=== PATIENT | male | born 1950 | race Hispanic/Latino ===

== ENCOUNTER 2018-04-07 08:42 | Observation (INO) | payer MEDICARE ==
[~2018-04-07] VITALS: Ht 177.8 cm; Wt 73.5 kg
[2018-04-07 09:17] LABS: BASOPHILS % (AUTO) 0.6 % (0.0-5.0); EOSINOPHILS % (AUTO) 7.3 % (0.0-8.0); HEMATOCRIT 43.1 % (42-54); MEAN CORPUSCULAR HEMOGLOBIN 31.6 pg (27.0-33.0); MEAN CORPUSCULAR HGB CONC 33.4 g/dL (32.0-36.0); MEAN CORPUSCULAR VOLUME 94.6 fL (79-99); MONOCYTES % (AUTO) 8.2 % (3.0-13.0); NEUTROPHILS % (AUTO) 63.9 % (40.0-77.0); PLATELET COUNT (AUTO) 160 K/uL (130-400); RED BLOOD CELL COUNT(AUTO) 4.56 MIL/uL (4.50-6.20); RED CELL DISTRIBUTION WIDTH 12.6 % (11.0-15.5); WHITE BLOOD COUNT (AUTO) 6.7 K/uL (4.8-10.8)
[2018-04-07 09:28] LABS: CREATININE 0.9 mg/dL (0.5-1.5); POTASSIUM 3.7 mmol/L (3.5-5.1)
[2018-04-07 09:31] LABS: ALBUMIN 3.9 g/dL (3.5-5.0); BILIRUBIN,TOTAL 0.7 mg/dL (0.2-1.0); TOTAL PROTEIN, SERUM 6.9 g/dL (6.0-8.3)
[2018-04-07 09:39] LABS: B-TYPE NATRIURETIC PEPTIDE 356 pg/mL (0-100)
[2018-04-07] MEDS ORDERED: ASPIRIN 325 MG TABLET ONE (09:46)
[2018-04-07] MEDS ORDERED: LIDOCAINE HCL 2% VISCOUS 15 ML UDCUP ONE (09:47)
[2018-04-07] MEDS ORDERED: MAG HYDROX/AL HYDROX/SIMETH ES 30 ML SUSP UDCUP ONE (09:47)
[2018-04-07 15:45] VITALS: BP 140/90
[2018-04-07] MEDS ORDERED: ACETAMINOPHEN 325 MG TAB PO PRN (15:45)
[2018-04-07] MEDS ORDERED: MORPHINE SULFATE 2 MG/ML 1ML SYG IV PRN (15:45)
[2018-04-07] MEDS ORDERED: ONDANSETRON HCL 4 MG/2 ML VIAL IV PRN (15:45)
--- NOTE | 2018-04-07 16:00 | NUR ---
NOTE CAME IN FROM ER WITH C/O CHEST DISCOMFORT STARTED AT HOME AFTER HE ATE [facility]. HE HAS NOT HAD BM FOR 3 DAYS AND HE ALSO STARTED HAVING PALPITATIONS. LABS FROM ER SO FAR SHOW CARDIAC ENZYMES TROPONIN 0.34. CARDIOLOGY CONSULT HAS BEEN ORDERED. DENIES ANY SOB OR CHEST PAIN AT THIS TIME.REQUESTING TO HAVE NEBULIZER THOUGH HE IS NOT SOB OR IN ANY DISTRESS.
[2018-04-07] MEDS ORDERED: ASPI-555 PO (16:26)
[2018-04-07] MEDS ORDERED: ALBU90AE IH (16:26)
[2018-04-07] MEDS ORDERED: OMEP20CA10 PO (16:26)
[2018-04-07] MEDS ORDERED: CETI10TA57 PO (16:26)
[2018-04-07] MEDS ORDERED: DICL75TA5 PO (16:26)
[2018-04-07] MEDS ORDERED: TIOT18CA3 IH (16:26)
[2018-04-07] MEDS ORDERED: CARV6.25 PO (16:26)
[2018-04-07] MEDS ORDERED: NITR0.4T SL (16:26)
[2018-04-07] MEDS ORDERED: FURO40TA5 PO (16:26)
[2018-04-07] MEDS ORDERED: LOSA25TA41 PO (16:26)
[2018-04-07] MEDS ORDERED: FLUT1AER IH (16:26)
[2018-04-07] MEDS ORDERED: ATOR40TA71 PO (16:26)
[2018-04-07] MEDS ORDERED: ACET-2743 PO (16:26)
[2018-04-07] MEDS ORDERED: ALBU2.5V2 IH (16:26)
[2018-04-07] MEDS ORDERED: LEVOFLOXACIN 500 MG/D5W 100 ML 100 ML IV SCH (17:00)
[2018-04-07 17:03] LABS: TROPONIN I 0.34 ng/mL (0.00-0.06)
[2018-04-07] MEDS: IPRATROPIUM/ALBUTEROL SULFATE 3 ML SOLUTION IH SCH ×2 (17:21→23:50)
--- NOTE | 2018-04-07 19:45 | NUR ---
DISCHARGE DISCHARGE TEACHING DONE WITH PATIENT AND USING TEACHBACK METHOD, VERBALIZED UNDERSTANDING. NO NOTED SOB OR DISTRESS. IV REMOVED, CATH TIP INTACT. SINCLAIR CATH IN PLACE, DRAINING YELLOW URINE. DRESSING ARE ALL DRY AND INTACT, C COLLAR IN PLACE. REPORT GIVEN TO [facility]. EMS TO TRANSPORT.
[2018-04-07 20:13] VITALS: BP 116/65
[2018-04-07] MEDS: METOPROLOL TARTRATE 25 MG TAB PO SCH ×2 (20:40→20:54)
[2018-04-07] MEDS: FAMOTIDINE/PF 20 MG/2 ML VIAL IV SCH (20:40)
[2018-04-07] MEDS: METHYLPREDNISOLONE SOD SUCC 125MG/2ML VIAL IV SCH (20:40)
[2018-04-07] MEDS ORDERED: ATORVASTATIN CALCIUM 20 MG TABLET PO SCH (21:00)
[2018-04-08 00:05] VITALS: BP 115/68
[2018-04-08 00:31] LABS: TROPONIN I 0.34 ng/mL (0.00-0.06)
[2018-04-08 04:00] VITALS: BP 117/66
[2018-04-08 04:48] LABS: HEMATOCRIT 44.6 % (42-54); MEAN CORPUSCULAR HEMOGLOBIN 31.9 pg (27.0-33.0); MEAN CORPUSCULAR HGB CONC 33.2 g/dL (32.0-36.0); MEAN CORPUSCULAR VOLUME 96.2 fL (79-99); PLATELET COUNT (AUTO) 175 K/uL (130-400); RED BLOOD CELL COUNT(AUTO) 4.64 MIL/uL (4.50-6.20); RED CELL DISTRIBUTION WIDTH 12.9 % (11.0-15.5); WHITE BLOOD COUNT (AUTO) 9.1 K/uL (4.8-10.8)
[2018-04-08] MEDS: IPRATROPIUM/ALBUTEROL SULFATE 3 ML SOLUTION IH SCH ×2 (06:41→10:52)
[2018-04-08] MEDS ORDERED: NITROGLYCERIN 0.4 MG SL TAB SL PRN (07:00)
[2018-04-08 08:05] VITALS: BP 117/69
[2018-04-08 08:56] VITALS: BP 117/69
[2018-04-08] MEDS: FAMOTIDINE/PF 20 MG/2 ML VIAL IV SCH (08:56)
[2018-04-08] MEDS: METHYLPREDNISOLONE SOD SUCC 125MG/2ML VIAL IV SCH (08:57)
[2018-04-08] MEDS ORDERED: SUB TO IPRATROPIUM 0.5MG/2.5ML PER P&T IH SCH (09:00)
[2018-04-08] MEDS ORDERED: LOSARTAN 50 MG TABLET PO SCH (09:00)
[2018-04-08] MEDS ORDERED: CARVEDILOL 6.25 MG TABLET PO SCH (09:00)
[2018-04-08] MEDS ORDERED: ASPIRIN 325 MG TABLET PO SCH (09:00)
[2018-04-08] MEDS ORDERED: ENOXAPARIN SODIUM 40 MG/0.4 ML SYRINGE SQ SCH (09:00)
[2018-04-08] MEDS ORDERED: LEVO500T2 PO (09:56)
[2018-04-08] MEDS ORDERED: LEVOFLOXACIN 500 MG/D5W 100 ML 100 ML IV SCH (11:30)
--- NOTE | 2018-04-08 12:15 | NUR ---
DISCHARGE DISCHARGE TEACHING DONE WITH PATIENT USING TEACHBACK METHOD, VERBALIZED UNDERSTANDING. NO NOTED SOB OR DISTRESS. PER PT, NO CHEST PAIN. TELEPACK REMOVED. PT AWARE OF NEED TO ATTEND DR. RUIZ APPOINTMENT. PT AWARE OF NEED TO SEE PCP IN 3 DAYS. IV REMOVED, CATH TIP INTACT. NEW MEDICATION ADMINISTRATION TEACHING DONE WITH PATIENT. PENDING TO BE TRANSFERRED OUT VIA PRIVATE VEHICLE.
[2018-04-08] MEDS ORDERED: FUROSEMIDE 40 MG TABLET PO SCH (18:00)
[2018-04-08] MEDS ORDERED: ATORVASTATIN CALCIUM 40 MG TABLET PO SCH (21:00)
== END 2018-04-08 13:56 | disposition home or self-care (01) ==
LOC: EDH 08:42 → EDHIP 12:48 → 4AH 14:57
PROVIDERS: ADMIT Hospitalist; ATTEND Hospitalist
DX: J20.9 Acute bronchitis, unspecified (principal); J44.9 Chronic obstructive pulmonary disease, unspecified; I25.10 Atherosclerotic heart disease of native coronary artery without angina pectoris; E78.5 Hyperlipidemia, unspecified; I10 Essential (primary) hypertension; I73.9 Peripheral vascular disease, unspecified; J18.9 Pneumonia, unspecified organism; F17.210 Nicotine dependence, cigarettes, uncomplicated; Z95.1 Presence of aortocoronary bypass graft
CPT/HCPCS: 36415 ×2; 71045; 74176; 80048; 80053; 82550 ×3; 83874 ×2; 83880; 84484 ×4; 85025; 85027; 87486; 87581; 87633; 87798; 93005 ×2; 94640 ×4; 94664; 96365; 96366; 96375 ×2; 96376; 99284; G0378 ×25; J1956 ×2; J2930 ×2; J3490 ×2